=== PATIENT | female | born 1945 ===

== ENCOUNTER 2016-05-29 10:00 | Outpatient (RCR) | payer OTHER | END 2016-06-21 | disposition home or self-care (01) | LOC: PTY 10:00 | DX: M54.31 Sciatica, right side (principal); I10 Essential (primary) hypertension; I25.2 Old myocardial infarction; Z95.0 Presence of cardiac pacemaker ==

== ENCOUNTER 2016-06-25 12:27 | Outpatient (RCR) | payer OTHER | END 2016-07-22 | disposition home or self-care (01) | LOC: PTY 12:27 | DX: M54.31 Sciatica, right side (principal); I10 Essential (primary) hypertension; I25.2 Old myocardial infarction; Z95.0 Presence of cardiac pacemaker ==

== ENCOUNTER 2016-07-30 10:05 | Outpatient (RCR) | payer OTHER | END 2016-08-21 | disposition home or self-care (01) | LOC: PTY 10:05 | DX: M54.31 Sciatica, right side (principal) ==

== ENCOUNTER 2016-09-08 11:00 | Outpatient (RCR) | payer OTHER | END 2016-09-21 | disposition home or self-care (01) | LOC: PTY 11:00 | DX: M54.31 Sciatica, right side (principal) ==

== ENCOUNTER → 2016-10-22 | Outpatient (RCR) | payer OTHER | END | disposition home or self-care (01) | LOC: PTY 10:50 | DX: M54.41 Lumbago with sciatica, right side (principal); Z95.0 Presence of cardiac pacemaker; I10 Essential (primary) hypertension; I25.2 Old myocardial infarction ==

== ENCOUNTER 2016-11-10 10:24 | Outpatient (RCR) | payer OTHER | END 2016-11-21 | disposition home or self-care (01) | LOC: PTY 10:24 | DX: M54.41 Lumbago with sciatica, right side (principal) ==